=== PATIENT | male | born 1930 | race Caucasian/White ===

== ENCOUNTER 2018-12-16 09:03 | Emergency (ER) | payer MEDICARE, OTHER | END 2018-12-16 10:20 | disposition home or self-care (01) | LOC: ERS 09:03 | DX: S40.211A Abrasion of right shoulder, initial encounter (principal); E03.9 Hypothyroidism, unspecified; I10 Essential (primary) hypertension; Z86.718 Personal history of other venous thrombosis and embolism; Z79.899 Other long term (current) drug therapy; V89.2XXA Person injured in unspecified motor-vehicle accident, traffic, initial encounter | CPT/HCPCS: 99283 ==

== ENCOUNTER 2019-07-25 17:43 | Emergency (ER) | payer OTHER ==
--- NOTE | 2019-07-25 18:35 | CT ---
CT BRAIN PERFORMED WITHOUT CONTRAST ENHANCEMENT: Date: 07/25/2019 HISTORY: Head injury. Status post fall. FINDINGS: Some generalized ventricular and sulcal prominence. There are no signs of intracerebral hemorrhage or extra-axial fluid collections. Mastoid air cells and visualized sinuses are clear. IMPRESSION: No acute intracranial abnormalities. POS: JORGE
--- NOTE | 2019-07-25 18:38 | CT ---
CT CERVICAL SPINE WITH CORONAL AND SAGITTAL REFORMATIONS AND NO IV CONTRAST: HISTORY: Fall, neck pain FINDINGS: Multilevel degenerative changes are present. No fracture, subluxation or facet malalignment is identified. 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 No prevertebral soft tissue swelling is apparent. The visualized lung apices are unremarkable. IMPRESSION: No CT evidence for fracture or traumatic subluxation.
[2019-07-25] MEDS ORDERED: Adacel (T-DAP) 0.5 ML SYRINGE ONE (18:50)
--- NOTE | 2019-07-25 20:07 | CT ---
CT FACIAL BONES WITH CORONAL AND SAGITTAL REFORMATIONS: History: Fall, trauma to the nose, pain in the nose and face. FINDINGS: There is a depressed fracture involving the left nasal bone. The remainder of the facial bones are ot herwise intact. No temporomandibular dislocation is seen. No fluid levels are identified in the paran alen sinuses. IMPRESSION: Left nasal bone fracture. POS: OFF
--- NOTE | 2019-07-25 20:40 | RAD ---
LEFT KNEE FOUR VIEWS: History: Fall, left knee pain. FINDINGS: No acute fracture or dislocation identified. POS: OFF
== END 2019-07-25 21:29 | disposition home or self-care (01) ==
LOC: ERS 17:43
DX: S02.2XXB Fracture of nasal bones, initial encounter for open fracture (principal); Z23 Encounter for immunization; E03.9 Hypothyroidism, unspecified; I10 Essential (primary) hypertension; G20 Parkinson's disease; Z86.718 Personal history of other venous thrombosis and embolism; Z79.899 Other long term (current) drug therapy; W18.09XA Striking against other object with subsequent fall, initial encounter; Y92.009 Unspecified place in unspecified non-institutional (private) residence as the place of occurrence of the external cause
CPT/HCPCS: 12011; 70450; 70486; 72125; 90471; 90715